=== PATIENT | female | born 1970 | race Hispanic/Latino ===

== ENCOUNTER 2025-03-25 17:13 | Emergency (ER) | payer OTHER ==
[2025-03-25] MEDS ORDERED: Boostrix 0.5 ML (Tdap) VIAL (>/=7 yrs of age) ONE (19:09)
[2025-03-25] MEDS ORDERED: Lidocaine 1% w/Epinephrine 1:200K 30 ML VIAL ONE (19:14)
[2025-03-25] MEDS ORDERED: Bacitracin 1 PK ONE (19:54)
== END 2025-03-25 20:19 | disposition home or self-care (01) ==
LOC: CSHERS 17:13
DX: S91.011A Laceration without foreign body, right ankle, initial encounter (principal); I10 Essential (primary) hypertension; E78.5 Hyperlipidemia, unspecified; Z23 Encounter for immunization; Z79.899 Other long term (current) drug therapy; W20.8XXA Other cause of strike by thrown, projected or falling object, initial encounter
CPT/HCPCS: 12001; 90471; 90715

== ENCOUNTER 2025-04-04 08:42 | Emergency (ER) | payer OTHER | END 2025-04-04 09:01 | disposition home or self-care (01) | LOC: CSHERS 08:42 | DX: S91.012D Laceration without foreign body, left ankle, subsequent encounter (principal); I10 Essential (primary) hypertension ==